=== PATIENT | male | born 1940 | race Caucasian/White ===

== ENCOUNTER 2016-06-17 10:00 | Inpatient (IN) | payer MEDICARE, OTHER ==
[~2016-06-17] VITALS: Ht 172.7 cm; Wt 74.3 kg
--- NOTE | ~2016-06-17 | OR ---
[facility] 75 [facility] [address] ROOM: [place] [address] LOCATION: [facility] ADMIT DATE: 06/29/2016 OR/Procedure Report DISCHARGE DATE: FAMILY PHYSICIAN: OTTONIEL GARCIA MD ATTENDING PHYSICIAN: BRAYAN JETER SURGEON: Brayan Jeter MD RESEARCH SCIENTIST: 1. ARIANA Eduardo. 2. Ciaran Adams CST/BINGO CALLER. DATE OF PROCEDURE: 06/29/2016 PREOPERATIVE DIAGNOSIS: Primary osteoarthritis, right hip. POSTOPERATIVE DIAGNOSIS: Primary osteoarthritis, right hip. OPERATION: Right total hip arthroplasty with [employer] robotic arm guidance and computer navigation. ANESTHESIA: Spinal anesthesia plus subcutaneous and periarticular local anesthesia. ESTIMATED BLOOD LOSS: Approximately 200 mL. DRAIN: None. SPECIMEN: None. COMPLICATIONS: None; however, a 6 mm fragment of the calcar chipped off during calcar planing, and thus, a prophylactic cerclage cable was placed immediately proximal to the lesser trochanter. IMPLANTS: 1. Daggett Trident size 58 mm hemispherical uncemented acetabular shell with one dome hole cover and no screws. 2. Daggett X3 neutral acetabular polyethylene liner with 40 mm inner diameter. 3. DeP[employer] Conway size 7 high-offset uncemented femoral component with one prophylactic Alysa Dall-Miles femoral cerclage cable. 4. A 40 mm Biolox femoral head with +1.5 mm neck length. INDICATION FOR SURGERY: Mr. Tadeo Nichole is a 75-year-old male who presents with advanced right hip primary osteoarthritis and associated severely compromised activities of daily living. The patient has decided to proceed with hip replacement after having been thoroughly counseled regarding the associated risks, benefits, and limitations. We have specifically reviewed the risks and implications of infection, deep venous thrombosis, pulmonary [facility] 75 Y [address] ROOM: [place] [address] LOCATION: [facility] ADMIT DATE: 06/29/2016 OR/Procedure Report DISCHARGE DATE: FAMILY PHYSICIAN: OTTONIEL GARCIA MD ATTENDING PHYSICIAN: BRAYAN JETER embolism, mortality, neurovascular complications, blood transfusion (and associated potential for disease transmission or transfusion reaction), stiffness, instability, leg length discrepancy, mechanical deterioration of the components (due to wear and to loosening), and the potential need for revision. DESCRIPTION OF PROCEDURE: The patient was positioned in a lateral decubitus position with the right side up after administration of anesthesia and prophylactic antibiotics. An axillary roll was placed and the non-operative leg was well padded. The pelvis was locked perpendicularly to the floor on a pegboard. The right hip and entire operative extremity were prepped and draped with vigilant sterile technique. The patient's name as well as the intended operative side and procedure were confirmed with a verbal time-out involving myself, the circulating nurse, the scrub nurse, and the anesthesiologist. The right hip was approached through a standard posterolateral incision. The fascia kelechi and the gluteus vienet fascia were sharply divided in line with the overlying skin incision. The sciatic nerve was identified and was vigilantly protected throughout the entire case. The short external rotators and posterior capsule were divided from their respective femoral insertions and tagged with four #1 Ethibond sutures for later repair. The hip was posteriorly dislocated with combined flexion, adduction, and internal rotation. The femoral neck osteotomy was performed with an oscillating saw. Inspection of the femoral head demonstrated no collapse. There was full-thickness loss of articular cartilage throughout the weightbearing surface. There was a moderate-sized osteophyte around the periphery of the femoral head. Circumferential acetabular exposure was obtained. Inspection of the acetabulum demonstrated a large effusion consisting of benign-appearing translucent synovial fluid. There was extensive degenerative tearing of the acetabular labrum. There was no dysplasia. There was full-thickness loss of articular cartilage involving 80% of the acetabular dome. There was a moderate-sized medial acetabular osteophyte. Remnants of the acetabular labrum were sharply thoroughly excised. The acetabulum was sequentially progressively reamed up to 58 mm. It should be noted that reaming was performed with the [employer] robotic arm guidance system with hemispherical power reamers. The final acetabular shell was impacted into position in 20 degrees of anteversion and 45 degrees of inclination. An excellent press-fit was obtained. No supplemental dome screw fixation was necessary. It should be noted that the acetabular component was impacted into position using the [employer] robotic arm guidance system. A PATIENT'S NAME: TADEO NICHOLE [facility] AGE: 75 Y [address] ROOM: [id number] [place], [place] [address] LOCATION: [facility] ADMIT DATE: 06/29/2016 OR/Procedure Report DISCHARGE DATE: FAMILY PHYSICIAN: OTTONIEL GARCIA MD ATTENDING PHYSICIAN: BRAYAN JETER neutral trial liner was inserted. Attention was next focused upon femoral preparation. The femoral canal initiator was utilized. The femoral canal was reamed by hand to a size 5 and subsequently on power to a size 7 with tapered conical reamers. The size 7 reamer tightly engaged the endosteal cortex of the proximal femur. The femoral canal was subsequently sequentially progressively broached up to a size 7. The size 7 broach obtained excellent axial and rotational stability. Trial reductions with the above specified construct yielded acceptable stability and acceptable reproduction of leg length and offset. All trial components were removed. The final acetabular liner was inserted with excellent circumferential visualization of its locking mechanism to assure adequate deployment. The final femoral component was impacted into position. The femoral component achieved excellent axial and rotational stability. The trunnion of the femoral component was vigilantly protected prior to placement of the femoral head. The trunnion of the femoral component was thoroughly cleaned and dried prior to placement of the femoral head. The incision was thoroughly irrigated with bacteriostatic pulsatile saline lavage multiple times throughout the case. The entire joint space was thoroughly inspected and thoroughly irrigated to assure that there was no residual debris of any sort. A final reduction was then performed. After final reduction, the hip could be firmly externally rotated in full extension and zero degrees of abduction without anterior subluxation. In neutral rotation and zero degrees of abduction, the hip could be firmly flexed to 120 degrees without instability. At 90 degrees of flexion and zero degrees abduction, the hip could be internally rotated to 45 degrees before there was any hint of posterior subluxation. The posterior capsule and short external rotators were repaired through two drill holes in the posterior aspect of the greater trochanter. The fascia kelechi and gluteus vineet fascia were closed with multiple simple and [id number] interrupted # 1 Ethibond and #1 Vicryl sutures. Subcutaneous tissues were thoroughly re-irrigated with bacteriostatic pulsatile saline lavage. Subcutaneous tissues were re-approximated with simple buried interrupted #0 Vicryl sutures. The skin was closed with superficial buried interrupted 2-0 Vicryl sutures followed by a running subcuticular 3-0 Monocryl suture, followed by Octylseal, followed by Steri- Strips with benzoin, followed by an occlusive Mepilex dressing. There were no intra-operative complications. PATIENT'S NAME: TADEO NICHOLE [facility] AGE: 75 Y [address] ROOM: [place] [address] LOCATION: [facility] ADMIT DATE: 06/29/2016 OR/Procedure Report DISCHARGE DATE: FAMILY PHYSICIAN: OTTONIEL GARCIA MD ATTENDING PHYSICIAN: BRAYAN JETER It should be noted that an accessary 4 cm incision was made over the anterior iliac crest through which 3 partially threaded Steinmann pins were placed between the inner and outer tables of the iliac wing to anchor the computer navigation tracker guidance array. These 3 pins were removed intact at the conclusion of the case prior to thorough irrigation of this incision and infiltration of subcutaneous tissues with 0.25% Marcaine with epinephrine. The accessary incision was closed with simple deep interrupted 0 Vicryl, followed by superficial buried interrupted 2-0 Vicryl, followed by a running subcuticular 3-0 Monocryl suture, followed by Dermabond, followed by Steri- Strips with benzoin and an occlusive Mepilex dressing. It should be noted that the physician's processing assistant played an active, integral role throughout this entire operation. By providing expert retraction, they greatly facilitated and expedited safe and effective exposure of the proximal femur and acetabulum for preparation and implantation of the components. They were also actively involved in the patient's positioning, prepping and draping, as well as wound closure. MD AMY PALACIOS/manuel /[id number] d: 06/29/16 1652 t: 07/04/16 1006, OPERATIVE SUMMARY
[~2016-06-17 10:00] MED LIST: ALEVE220 M1 PO; AMLODIPINE-BEN1 EAC4 PO; BENADRYL25 MG PO; PRESERVISION A1 EACH PO; PROTANDIM PO; THERAGRAN-M1 TAB PO
[2016-06-30 04:55] LABS: HEMATOCRIT 34.9 % (37.0-53.0); HEMOGLOBIN 11.8 g/dL (11.0-16.0)
[2016-07-01] MEDS ORDERED: TYLENOL EXTRA500 MG PO (13:44)
[2016-07-01] MEDS ORDERED: COLACE100 MG PO (13:46)
[2016-07-01] MEDS ORDERED: MIRALAX17 GM PO (13:49)
[2016-07-01] MEDS ORDERED: XARELTO10 MG PO (13:50)
[2016-07-01] MEDS ORDERED: VALIUM5 MG PO (13:52)
[2016-07-01] MEDS ORDERED: DILAUDID 2MG(HYD2 MG PO (13:54)
== END 2016-07-01 14:50 | disposition disaster alternative care site (69) | DRG 470 ==
LOC: G3N 06-29 08:22
PROVIDERS: ADMIT Orthopaedic Surgery
PROC: 8E0Y0CZ Robotic Assisted Procedure of Lower Extremity, Open Approach (ICD-10-PCS; principal; 2016-06-29)
PROC: 0SR904A Replacement of Right Hip Joint with Ceramic on Polyethylene Synthetic Substitute, Uncemented, Open Approach (ICD-10-PCS; principal; 2016-06-29)
DX: M16.11 Unilateral primary osteoarthritis, right hip (principal); I10 Essential (primary) hypertension; Z87.891 Personal history of nicotine dependence; Z86.718 Personal history of other venous thrombosis and embolism
CPT/HCPCS: C1713; C1776; J0690; J1100; J1885; J2001; J2795; J7030

== ENCOUNTER → 2016-06-18 | Outpatient (CLI) | payer MEDICARE, OTHER ==
[~2016-06-18] MED LIST changes: +COLACE100 MG PO; +DILAUDID 2MG(HYD2 MG PO; +MIRALAX17 GM PO; +TYLENOL EXTRA500 MG PO; +VALIUM5 MG PO; +XARELTO10 MG PO
== END | disposition disaster alternative care site (69) ==
LOC: GRAD 08:46
DX: Z01.818 Encounter for other preprocedural examination (principal); M16.11 Unilateral primary osteoarthritis, right hip; M25.551 Pain in right hip